=== PATIENT | female | born 1990 | race Caucasian/White ===

== ENCOUNTER → 2017-08-07 | Outpatient (CLI) | payer OTHER ==
[~2017-08-07] VITALS: Ht 152.4 cm; Wt 81.8 kg
[~2017-08-07] MED LIST: BACTRIM,SEPT1 TABLET PO; BUSPAR15 MG PO; DIFLUCAN150 MG PO; FLINTSTONES M100 MCG PO; Feosol PO; KEFLEX500 MG PO; LO-DOSE ASPIRIN81 M1 PO; MEDROL DOSEPAK4 MG PO; MOTRIN800 MG PO; Motrin PO; NAPROSYN500 MG PO; NO HOME MEDS; NOHOMEMEDS; PYRIDIUM200 MG PO; Percocet 5/325,Endoc PO
[2017-08-07 09:25] VITALS: BP 136/69
== END | disposition home or self-care (01) ==
LOC: IVINF 08-06 19:00
DX: Z34.83 Encounter for supervision of other normal pregnancy, third trimester (principal); Z3A.28 28 weeks gestation of pregnancy; Z67.41 Type O blood, Rh negative
CPT/HCPCS: 96372; J2790

== ENCOUNTER 2017-09-01 17:33 | Outpatient (CLI) | payer OTHER ==
[~2017-09-01] VITALS: Ht 152.4 cm; Wt 82.7 kg
[2017-09-01 17:55] VITALS: BP 132/72
[2017-09-01 18:52] VITALS: BP 130/86
[2017-09-01 19:50] LABS: APPEARANCE SL.HAZY ((CLEAR)); BILIRUBIN NEGATIVE; BLOOD NEGATIVE; COLOR YELLOW ((YELLOW)); GLUCOSE (STRIP) NEGATIVE; KETONES 20; LEUKOCYTES NEGATIVE; NITRITE NEGATIVE; PROTEIN (STRIP) NEGATIVE; SPECIFIC GRAVITY 1.013 (1.000-1.030); UROBILINOGEN 0.2 MG/DL (0.2-1.0)
[2017-09-01 20:09] LABS: BACTERIA RARE /HPF; EPITHELIAL CELLS 1+ /HPF; MUCUS TRACE /LPF; RED BLOOD CELLS 0-5 /HPF (0-5); UCUL ADDED? NO; WHITE BLOOD CELLS 0-5 /HPF (0-5)
== END 2017-09-01 19:50 | disposition home or self-care (01) ==
LOC: LDRP-OP 17:33 → 2WEST 17:35 → LDRP-OP 11-17 14:29
PROVIDERS: Advanced Practice Midwife
DX: O47.03 False labor before 37 completed weeks of gestation, third trimester (principal); O99.343 Other mental disorders complicating pregnancy, third trimester; F41.9 Anxiety disorder, unspecified; Z3A.33 33 weeks gestation of pregnancy
CPT/HCPCS: 59025; 81003; G0378

== ENCOUNTER 2017-09-21 15:00 | Outpatient (CLI) | payer OTHER ==
[~2017-09-21] VITALS: Ht 152.4 cm; Wt 83.9 kg
[2017-09-21 15:14] VITALS: BP 121/71
[2017-09-21 16:01] VITALS: BP 111/83
[2017-09-21 16:14] LABS: APPEARANCE CLOUDY ((CLEAR)); BILIRUBIN NEGATIVE; BLOOD NEGATIVE; COLOR AMBER ((YELLOW)); GLUCOSE (STRIP) NEGATIVE; KETONES NEGATIVE; LEUKOCYTES LARGE; NITRITE NEGATIVE; PROTEIN (STRIP) 30; SPECIFIC GRAVITY 1.026 (1.000-1.030); UROBILINOGEN 0.2 MG/DL (0.2-1.0)
[2017-09-21 16:36] LABS: RED BLOOD CELLS 0-5 /HPF (0-5)
[2017-09-21 16:37] LABS: BACTERIA 2+ /HPF; EPITHELIAL CELLS 3+ /HPF; MUCUS 2+ /LPF; UCUL ADDED? YES; WHITE BLOOD CELLS 15-20 /HPF (0-5)
== END 2017-09-21 17:00 | disposition home or self-care (01) ==
LOC: LDRP-OP 15:00 → 2WEST 15:02 → LDRP-OP 11-17 20:53
PROVIDERS: Midwife
DX: O47.03 False labor before 37 completed weeks of gestation, third trimester (principal); O99.213 Obesity complicating pregnancy, third trimester; E66.9 Obesity, unspecified; Z68.34 Body mass index [BMI] 34.0-34.9, adult; Z3A.36 36 weeks gestation of pregnancy
CPT/HCPCS: 59025; 81003; 87086; G0378

== ENCOUNTER 2017-09-23 03:15 | Outpatient (CLI) | payer OTHER ==
[~2017-09-23] VITALS: Ht 152.4 cm; Wt 84.0 kg
[2017-09-23 03:27] VITALS: BP 138/78
== END 2017-09-23 04:45 | disposition home or self-care (01) ==
LOC: LDRP-OP 03:15 → 2WEST 03:16 → LDRP-OP 11-17 21:23
DX: O47.03 False labor before 37 completed weeks of gestation, third trimester (principal); Z3A.36 36 weeks gestation of pregnancy
CPT/HCPCS: 59025; G0378

== ENCOUNTER 2017-09-29 16:22 | Outpatient (CLI) | payer OTHER ==
[~2017-09-29] VITALS: Ht 152.4 cm; Wt 85.5 kg
[2017-09-29 16:53] VITALS: BP 109/81
== END 2017-09-29 17:40 | disposition home or self-care (01) ==
LOC: LDRP-OP 16:22 → 2WEST 16:23 → LDRP-OP 11-17 05:39
DX: O26.893 Other specified pregnancy related conditions, third trimester (principal); O34.219 Maternal care for unspecified type scar from previous cesarean delivery; Z3A.37 37 weeks gestation of pregnancy; M54.5 Low back pain; R10.9 Unspecified abdominal pain
CPT/HCPCS: 59025; G0378

== ENCOUNTER 2017-10-07 09:22 | Outpatient (CLI) | payer OTHER ==
[~2017-10-07] VITALS: Ht 152.4 cm; Wt 84.1 kg
[2017-10-07 09:32] VITALS: BP 137/70
[2017-10-07 11:41] VITALS: BP 127/83
== END 2017-10-07 12:01 | disposition home or self-care (01) ==
LOC: LDRP-OP 09:22 → 2WEST 09:24 → LDRP-OP 11-17 18:39
DX: O47.1 False labor at or after 37 completed weeks of gestation (principal); O34.219 Maternal care for unspecified type scar from previous cesarean delivery; Z3A.38 38 weeks gestation of pregnancy
CPT/HCPCS: 59025; G0378

== ENCOUNTER 2017-10-16 21:15 | Outpatient (CLI) | payer OTHER ==
[2017-10-16 21:24] VITALS: BP 130/71
== END 2017-10-16 22:25 | disposition home or self-care (01) ==
LOC: LDRP-OP 21:15 → 2WEST 21:17 → LDRP-OP 11-17 12:24
DX: O47.1 False labor at or after 37 completed weeks of gestation (principal); O34.219 Maternal care for unspecified type scar from previous cesarean delivery; Z3A.39 39 weeks gestation of pregnancy
CPT/HCPCS: 59025; G0378

== ENCOUNTER 2017-10-21 08:30 | Inpatient (IN) | payer OTHER ==
[~2017-10-21] VITALS: Ht 152.4 cm; Wt 86.6 kg
[2017-10-21] VITALS (7 sets, daily range): BP systolic 108–143; BP diastolic 63–75
[2017-10-21 09:31] LABS: BASOPHIL (%) 0.2 % (0-1); EOSINOPHIL (%) 0.4 % (0-5); HEMATOCRIT 33.8 % (36.0-46.0); HEMOGLOBIN 10.8 G/DL (11.9-15.5); IMMATURE GRANULOCYTE (%) 0.8 % (0.0-0.7); LYMPHOCYTE COUNT 2.7 K/uL (1.0-2.8); MCH 26.7 PG (29.0-34.0); MCV 83.5 FL (83-99); MONOCYTE (%) 5.3 % (3-12); MONOCYTE COUNT 0.6 K/uL (0-0.8); NEUTROPHIL (%) 69.3 % (45-76); NEUTROPHIL COUNT 7.9 K/uL (1.8-6.4); PLATELET COUNT 240 K/uL (156-360); RBC DIS.WIDTH-CV 14.4 % (11.8-14.6); RBC DIS.WIDTH-SD 43.3 % (39-53); RED BLOOD COUNT 4.05 M/uL (3.80-5.20); WHITE BLOOD COUNT 11.3 K/uL (4.1-10.2)
[2017-10-21 11:37] LABS: AMPHETAMINE NEGATIVE (500 ng/mL); BARBITURATES NEGATIVE (200 ng/mL); BENZODIAZEPINES NEGATIVE (150 ng/mL); BUPRENORPHINE NEGATIVE (10 ng/mL); COCAINE NEGATIVE (150 ng/mL); METHADONE NEGATIVE (200 ng/mL); METHAMPHETAMINE NEGATIVE (500 ng/mL); OPIATES (MORPHINE) NEGATIVE (100 ng/mL); OXYCODONE NEGATIVE (100 ng/mL); PHENCYCLIDINE NEGATIVE (25 ng/mL); PROPOXYPHENE NEGATIVE (300 ng/mL); THC CANNABINOIDS NEGATIVE (50 ng/mL); TRICYCLIC ANTIDEPRESSANTS NEGATIVE (300 ng/mL)
[2017-10-21] MEDS ORDERED: ENDOCET 5-3251 EACH PO (14:44)
[2017-10-21] MEDS ORDERED: IBUPROFEN800 MG PO (14:44)
[2017-10-22 02:07] VITALS: BP 134/77
[2017-10-22 06:52] LABS: BASOPHIL (%) 0.1 % (0-1); EOSINOPHIL (%) 0.1 % (0-5); HEMATOCRIT 29.7 % (36.0-46.0); HEMOGLOBIN 9.5 G/DL (11.9-15.5); IMMATURE GRANULOCYTE (%) 0.7 % (0.0-0.7); LYMPHOCYTE COUNT 2.1 K/uL (1.0-2.8); MCH 27.3 PG (29.0-34.0); MCV 85.3 FL (83-99); MONOCYTE (%) 5.2 % (3-12); MONOCYTE COUNT 0.7 K/uL (0-0.8); NEUTROPHIL (%) 78.9 % (45-76); NEUTROPHIL COUNT 10.8 K/uL (1.8-6.4); PLATELET COUNT 235 K/uL (156-360); RBC DIS.WIDTH-CV 14.6 % (11.8-14.6); RBC DIS.WIDTH-SD 44.8 % (39-53); RED BLOOD COUNT 3.48 M/uL (3.80-5.20); WHITE BLOOD COUNT 13.7 K/uL (4.1-10.2)
[2017-10-22 07:09] VITALS: BP 111/66
[2017-10-22 11:40] VITALS: BP 120/79
[2017-10-22 15:29] VITALS: BP 118/59
[2017-10-23] MEDS ORDERED: DOCUSATE SODIU100 MG PO (08:49)
== END 2017-10-23 12:50 | disposition home or self-care (01) | DRG 766 ==
LOC: 2WEST 08:30 → 2SOUTH 14:04 → 2WEST 10-23 12:50
PROVIDERS: Obstetrics & Gynecology Obstetrics
PROC: 10D00Z1 Extraction of Products of Conception, Low, Open Approach (ICD-10-PCS; principal; 2017-10-21)
DX: O34.211 Maternal care for low transverse scar from previous cesarean delivery (principal); O48.0 Post-term pregnancy; O99.344 Other mental disorders complicating childbirth; F41.9 Anxiety disorder, unspecified; O99.214 Obesity complicating childbirth; E66.9 Obesity, unspecified; Z68.34 Body mass index [BMI] 34.0-34.9, adult; Z79.82 Long term (current) use of aspirin; Z3A.40 40 weeks gestation of pregnancy; Z37.0 Single live birth
CPT/HCPCS: 83030; 85025; 86850; 86900; 86901; J0690; J1100; J2274; J2405; J2590; J2790; J7120; S0020

== ENCOUNTER 2017-10-30 17:24 | Emergency (ER) | payer OTHER ==
[~2017-10-30] VITALS: Ht 152.4 cm; Wt 80.6 kg
[~2017-10-30 17:24] MED LIST changes: +DOCUSATE SODIU100 MG PO; +ENDOCET 5-3251 EACH PO; +IBUPROFEN800 MG PO
[2017-10-30 18:06] LABS: HEMOGLOBIN 10.3 G/DL (11.9-15.5); MCH 27.4 PG (29.0-34.0); MCHC 32.2 G/DL (30.0-36.0); MCV 85.1 FL (83-99); RBC DIS.WIDTH-CV 13.7 % (11.8-14.6); RBC DIS.WIDTH-SD 42.9 % (39-53); RED BLOOD COUNT 3.76 M/uL (3.80-5.20); WHITE BLOOD COUNT 10.1 K/uL (4.1-10.2)
[2017-10-30 18:08] LABS: PLATELET COUNT 326 K/uL (156-360)
[2017-10-30 18:21] LABS: ALBUMIN 3.9 g/dL (3.2-4.8); CHLORIDE 106 mEq/L (99-109); POTASSIUM 4.4 mEq/L (3.7-5.4); SODIUM 141 mEq/L (136-147)
[2017-10-30 18:23] LABS: GLUCOSE 86 mg/dL (70-99); TOTAL PROTEIN 7.3 g/dL (6.4-8.3)
[2017-10-30 18:25] LABS: TOTAL BILIRUBIN 0.4 mg/dL (0.0-1.0)
[2017-10-30 18:26] LABS: ALKALINE PHOSPHATASE 100 IU/L (3-129)
[2017-10-30 18:27] LABS: CREATININE 0.7 mg/dL (0.6-1.3); GFR ESTIMATE (CALCULATED) > 59 mL/min/
[2017-10-30 18:28] LABS: AST (GOT) 23 IU/L (2-34); UREA NITROGEN (BUN) 18 mg/dL (9-23)
[2017-10-30 18:30] LABS: ALT (GPT) 18 IU/L (3-49)
[2017-10-30 19:47] LABS: APPEARANCE CLEAR ((CLEAR)); BILIRUBIN NEGATIVE; BLOOD SMALL; COLOR YELLOW ((YELLOW)); GLUCOSE (STRIP) NEGATIVE; KETONES NEGATIVE; LEUKOCYTES LARGE; NITRITE NEGATIVE; PROTEIN (STRIP) NEGATIVE; SPECIFIC GRAVITY 1.015 (1.000-1.030); UROBILINOGEN 0.2 MG/DL (0.2-1.0)
[2017-10-30 20:02] LABS: BACTERIA RARE /HPF; EPITHELIAL CELLS RARE /HPF; MUCUS TRACE /LPF; RED BLOOD CELLS 0-5 /HPF (0-5); UCUL ADDED? YES; WHITE BLOOD CELLS 20-30 /HPF (0-5)
[2017-10-30 20:16] VITALS: BP 137/87
== END 2017-10-30 20:17 | disposition home or self-care (01) ==
LOC: EME 17:24
PROVIDERS: Nurse Practitioner Family
DX: R10.2 Pelvic and perineal pain (principal); M54.9 Dorsalgia, unspecified; F41.9 Anxiety disorder, unspecified; Z88.0 Allergy status to penicillin; Z91.09 Other allergy status, other than to drugs and biological substances
CPT/HCPCS: 76856; 80053; 81003; 85027; 87086; 99281; 99284

== ENCOUNTER 2017-12-09 18:11 | Emergency (ER) | payer OTHER ==
[~2017-12-09] VITALS: Ht 152.4 cm; Wt 80.7 kg
[2017-12-09 19:21] LABS: HEMATOCRIT 34.5 % (36.0-46.0); HEMOGLOBIN 11.2 G/DL (11.9-15.5); MCH 26.1 PG (29.0-34.0); MCHC 32.5 G/DL (30.0-36.0); MCV 80.4 FL (83-99); PLATELET COUNT 307 K/uL (156-360); RBC DIS.WIDTH-CV 13.2 % (11.8-14.6); RBC DIS.WIDTH-SD 37.9 % (39-53); RED BLOOD COUNT 4.29 M/uL (3.80-5.20); WHITE BLOOD COUNT 10.6 K/uL (4.1-10.2)
[2017-12-09 19:29] LABS: PTT 29.4 SEC (25-37)
[2017-12-09 19:35] LABS: ALBUMIN 4.8 g/dL (3.2-4.8); CHLORIDE 104 mEq/L (99-109); POTASSIUM 3.9 mEq/L (3.7-5.4); SODIUM 139 mEq/L (136-147)
[2017-12-09 19:38] LABS: GLUCOSE 91 mg/dL (70-99); TOTAL PROTEIN 8.2 g/dL (6.4-8.3)
[2017-12-09 19:40] LABS: APPEARANCE CLEAR ((CLEAR)); BILIRUBIN NEGATIVE; BLOOD SMALL; COLOR STRAW ((YELLOW)); GLUCOSE (STRIP) NEGATIVE; KETONES NEGATIVE; LEUKOCYTES MODERATE; NITRITE NEGATIVE; PROTEIN (STRIP) NEGATIVE; SPECIFIC GRAVITY 1.009 (1.000-1.030); UROBILINOGEN 0.2 MG/DL (0.2-1.0)
[2017-12-09 19:40] LABS: TOTAL BILIRUBIN 0.5 mg/dL (0.0-1.0)
[2017-12-09 19:41] LABS: ALKALINE PHOSPHATASE 107 IU/L (3-129)
[2017-12-09 19:42] LABS: CREATININE 0.7 mg/dL (0.6-1.3); GFR ESTIMATE (CALCULATED) > 59 mL/min/
[2017-12-09 19:42] LABS: BACTERIA RARE /HPF; EPITHELIAL CELLS 1+ /HPF; MUCUS TRACE /LPF; RED BLOOD CELLS 0-5 /HPF (0-5); WHITE BLOOD CELLS 0-5 /HPF (0-5)
[2017-12-09 19:43] LABS: AST (GOT) 18 IU/L (2-34); DIRECT BILIRUBIN 0.2 mg/dL (0.0-0.3); UREA NITROGEN (BUN) 12 mg/dL (9-23)
[2017-12-09 19:44] LABS: ALT (GPT) 20 IU/L (3-49)
[2017-12-09] MEDS ORDERED: MOTRIN800 MG PO (20:34)
[2017-12-09] MEDS ORDERED: REGLAN10 MG PO (20:34)
[2017-12-09 20:51] VITALS: BP 109/73
== END 2017-12-09 20:52 | disposition home or self-care (01) ==
LOC: EME 18:11
PROVIDERS: Physician Assistant
DX: G43.909 Migraine, unspecified, not intractable, without status migrainosus (principal); F41.9 Anxiety disorder, unspecified; Z88.0 Allergy status to penicillin
CPT/HCPCS: 80048; 80076; 81003; 85027; 85610; 85730; 99281; 99284; J1200; J1885; J2765; J7030